=== PATIENT | female | born 1965 | race Caucasian/White ===

== ENCOUNTER 2021-09-04 15:29 | Emergency (ER) | payer BC ==
[~2021-09-04] VITALS: Ht 172.7 cm; Wt 131.0 kg
[~2021-09-04 15:29] MED LIST: ADVIL200 MG PO; ALLEGRA180 MG PO; ALLERGY RELIEF10 M1 PO; ANTACID MULTI-1 EACH PO; FLONASE2 SPRAY NS; GLIPIZIDE XL10 MG PO; HYZAAR 50-12.5 T1 EA PO; LEVOTHYROXINE50 MCG PO; METFORMIN HCL500 MG PO; METOPROLOL SUCC25 MG PO; METOPROLOL TART25 MG PO; NORCO 10-325 T1 EACH PO; NORCO 5-325 TA1 EACH PO; SINGULAIR5 MG PO; SPIRONOLACTONE50 MG PO; SYNTHROID25 MCG PO; ZYRTEC10 MG PO
--- OUTSIDE RECORDS SUMMARY | 2021-09-04 15:32 | XMS ---
PreManage Notification: LAN ROWLAND Security [employer] Events No recent Security Events currently on file CRITERIA MET - PDMP CARE PROVIDERS Val Grajdea-C Nurse Practitioner: Family Current PHONE: [phone] Shanna has no Care Guidelines for this patient. EAren VISIT COUNT (12 MO.) 1 [facility] Song TOTAL 1 NOTE: Visits indicate total known visits. ED/UCC VISIT TRACKING (12 MO.) 09/04/2021 15:30 [facility] OR TYPE: Emergency COMPLAINT: - FLU SYMPTOMS AND PRESSURE IN CHEST INPATIENT VISIT TRACKING (12 MO.) No inpatient visits to display in this time frame [email or web address]
[2021-09-04] MEDS ORDERED: GLIPIZIDE ER5 MG PO (17:24)
[2021-09-04] MEDS ORDERED: GABAPENTIN100 MG PO (17:24)
--- NOTE | 2021-09-04 19:26 | EKG ---
[facility] [address] [place], [place] [address] Signed Normal sinus rhythm Normal ECG No previous ECGs available Confirmed by RENAE CALIXTO DO ([id number]) on 09/04/2021 7:26:44 PM Electronically Signed By: RENAE CALIXTO DO 09/04/211925 PATIENT NAME: LAN ROWLAND Electrocardiogram DATE OF : 63 PHYSICIAN: RENAE CALIXTO DO REPORT #: [id number] REPORT IS CONFIDENTIAL AND NOT TO BE RELEASED WITHOUT AUTHORIZATION
== END 2021-09-04 20:22 | disposition home or self-care (01) ==
LOC: ED 15:29
DX: U07.1 COVID-19 (principal); I10 Essential (primary) hypertension; E11.9 Type 2 diabetes mellitus without complications; E03.9 Hypothyroidism, unspecified; Z87.891 Personal history of nicotine dependence; Z88.2 Allergy status to sulfonamides; Z88.1 Allergy status to other antibiotic agents; Z79.84 Long term (current) use of oral hypoglycemic drugs; Z79.899 Other long term (current) drug therapy
CPT/HCPCS: 36415; 71045; 84484; 93005; 93010; 99284-25; U0003